=== PATIENT | female | born 1995 | race Caucasian/White ===

== ENCOUNTER 2017-08-16 16:05 | Emergency (ER) | payer OTHER ==
[2017-08-16 16:49] VITALS: BP 120/72
--- NOTE | 2017-08-16 17:02 | UC ---
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 - History Of Current Complaint Chief Complaint: UCUpperExtremity Stated Complaint: RT HAND INJ Time Seen by Provider: 08/16/17 16:37 Hx Obtained From: Patient Hx Last Menstrual Period: 07/29/17 ?: No Mechanism Of Injury: no orginal injury Onset/Duration: Gradual Onset, Lasting Weeks - 52, Still Present Severity Initially: Moderate Severity Currently: Moderate Character Of Pain: Aching, Throbbing, Stiffness Aggravating Factor(s): Movement Alleviating Factor(s): Nothing Associated Signs And Symptoms: Positive: Numbness/Tingling Related History: Dominant Hand Right - Allergies/Home Medications Allergies/Adverse Reactions: Allergies Allergy/AdvReac Type Severity Reaction Status Date / Time No Known Allergies Allergy Verified 08/16/17 16:31 Home Medications: Home Medications Biotin [Biotin Gummies] 2,000 mcg PO 08/16/17 [History] Escitalopram Oxalate [Lexapro 20 mg] 20 mg PO DAILY 08/16/17 [History Confirmed 08/16/17] Famotidine TAB* [Pepcid 20 MG TAB*] 20 mg PO BID 08/16/17 [History Confirmed 11/28] Ibuprofen TAB* [Advil TAB*] 600 mg PO Q6H PRN 08/16/17 [History Confirmed ] Oral Contraceptive 1 tab PO DAILY 08/16/17 [History] PMH/Surg Hx/FS Hx/Imm Hx Previously Healthy: No GI/ History: Gastroesophageal Reflux Psychological History: Other Other Psychological History: eating disorder - Surgical History Surgical History: None - Family History Known Family History: Positive: None - Social History Occupation: Employed Full-time Lives: With Family Alcohol Use: Occasionally Substance Use Type: None Smoking Status (MU): Former Smoker Have You Smoked in the Last Year: Yes When Did the Patient Quit Smoking/Using Tobacco: 06/2017 Review of Systems Constitutional: Negative Skin: Negative Eyes: Negative ENT: Negative Respiratory: Negative Cardiovascular: Negative Gastrointestinal: Negative Genitourinary: Negative Motor: Negative Neurovascular: Negative Musculoskeletal: Arthralgia - right hand pain Neurological: Negative Psychological: Negative Is Patient Immunocompromised?: No All Other Systems Reviewed And Are Negative: Yes Physical Exam Triage Information Reviewed: Yes Appearance: Well-Appearing, No Pain Distress, Well-Nourished Vital Signs: Initial Vital Signs Temp 98.3 F 08/16/17 16:33 Pulse 73 08/16/17 16:33 Resp 16 08/16/17 16:33 BP 120/72 08/16/17 16:33 Pulse Ox 100 08/16/17 16:33 Vital Signs Reviewed: Yes Eye Exam: Normal Eyes: Positive: Conjunctiva Clear ENT Exam: Normal ENT: Positive: Normal ENT inspection, Hearing grossly normal, Pharynx normal, TMs normal. Negative: Nasal congestion, Tonsillar swelling, Tonsillar exudate, Trismus, Muffled voice, Hoarse voice, Dental tenderness, Sinus tenderness Dental Exam: Normal Neck exam: Normal Neck: Positive: Supple, Nontender, No Lymphadenopathy Respiratory Exam: Normal Respiratory: Positive: Chest non-tender, Lungs clear, Normal breath sounds, No respiratory distress, No accessory muscle use Cardiovascular Exam: Normal Cardiovascular: Positive: RRR, No Murmur, Pulses Normal, Brisk Capillary Refill Musculoskeletal Exam: Normal Musculoskeletal: Positive: Strength Intact, ROM Intact, No Edema Neurological Exam: Normal Neurological: Positive: Alert, Muscle Tone Normal Psychological Exam: Normal Psychological: Positive: Normal Response To Family, Age Appropriate Behavior Skin Exam: Normal Skin: Positive: rashes Diagnostics - Radiology No standard instances Xray Interpretation: No Acute Changes Radiology Interpretation Completed By: ED Physician, Radiologist Hand/Wrist Course/Dx - Course Course Of Treatment: medrol dose pack, john wrap patient refused work note - Differential Dx/Diagnosis Provider Diagnoses: right hand tendonitis, self reported eating disorder Discharge - Discharge Plan Condition: Stable Disposition: HOME Prescriptions: Methylprednisolone [Medrol Dosepak 4 MG*] 4 mg PO .SEE LISA INSTRUCTION #1 lisa Patient Education Materials: Tendinitis (ED) Referrals: [facility] [Outside] - As Soon As Possible Garrett Adan MD [Medical Doctor] - As Soon As Possible Manolo Munson PA [Primary Care Provider] -
--- NOTE | 2017-08-16 17:51 | RAD ---
INDICATION: Chronic hand pain. Fall 2 weeks ago. Attention metacarpal phalangeal joints and fifth digit. COMPARISON: December 28, 2005 radiographs of the fifth finger. TECHNIQUE: AP, lateral, and oblique views RIGHT hand. REPORT: Normal articular alignment. Negative for fracture. Unremarkable soft tissue contours. IMPRESSION: No traumatic injury evident. No significant arthropathic change evident. Negative exam.
== END 2017-08-16 18:13 | disposition home or self-care (01) ==
LOC: UCCORT 16:05
DX: M77.9 Enthesopathy, unspecified (principal); F50.9 Eating disorder, unspecified; K21.9 Gastro-esophageal reflux disease without esophagitis; Z87.891 Personal history of nicotine dependence; Z79.899 Other long term (current) drug therapy; W19.XXXA Unspecified fall, initial encounter; Y92.9 Unspecified place or not applicable
CPT/HCPCS: 99212; G0463

== ENCOUNTER 2019-09-19 07:20 | Emergency (ER) | payer OTHER ==
[2019-09-19 07:43] VITALS: BP 105/66
--- NOTE | 2019-09-19 08:04 | UC ---
Throat Pain/Nasal Mainor HPI - HPI Summary HPI Summary: 23 yo with sore throat for a week. She is finding it hard to swallow and only managing soft foods. No fever, headache or associated cough. - History of Current Complaint Chief Complaint: UCRespiratory Stated Complaint: BUMPS IN THROAT Time Seen by Provider: 09/19/19 07:54 Hx Obtained From: Patient Hx Last Menstrual Period: 09/01/19 Onset/Duration: Gradual Onset, Lasting Days Severity: Moderate Pain Intensity: 6 Cough: None Associated Signs & Symptoms: Positive: Dysphagia - Epiglottits Risk Factors Epiglottis Risk Factors: Negative - Allergies/Home Medications Allergies/Adverse Reactions: Allergies Allergy/AdvReac Type Severity Reaction Status Date / Time omeprazole Allergy Hives Verified 09/19/19 07:44 seasonal Allergy Congestion Uncoded 09/19/19 07:44 Home Medications: Home Medications Biotin 1 tab PO QPM PRN 09/19/19 [History Confirmed 09/19/19] Dextromethorphn/Acetaminoph/Cp [Vicks Nyquil Cold & Flu N] 1 liq PO QPM [History Confirmed 09/19/19] Thera-Flu 1 powder PO DAILY 09/19/19 [History Confirmed 09/19/19] PMH/Surg Hx/FS Hx/Imm Hx Previously Healthy: Yes GI/ History: Gastroesophageal Reflux - Surgical History Surgical History: None - Family History Known Family History: Positive: Hypertension - father's side - Social History Occupation: Employed Full-time Lives: With Family Alcohol Use: Occasionally Substance Use Type: None Smoking Status (MU): Never Smoked Tobacco Have You Smoked in the Last Year: No When Did the Patient Quit Smoking/Using Tobacco: 06/2017 Review of Systems All Other Systems Reviewed And Are Negative: Yes Constitutional: Positive: Negative Skin: Positive: Negative Eyes: Positive: Negative ENT: Positive: Sore Throat. Negative: Ear Ache, Nasal Discharge, Sinus Congestion Respiratory: Positive: Negative. Negative: Cough Cardiovascular: Positive: Negative Gastrointestinal: Positive: Other - uses famotidine daily, controls reflux well Genitourinary: Positive: Negative Motor: Positive: Negative Neurovascular: Positive: Negative Musculoskeletal: Positive: Negative Neurological: Positive: Negative Psychological: Positive: Negative Is Patient Immunocompromised?: No Physical Exam Triage Information Reviewed: Yes Appearance: Well-Appearing, Pain Distress - mild Vital Signs: Initial Vital Signs Temp 98 F 09/19/19 07:37 Pulse 87 09/19/19 07:37 Resp 16 09/19/19 07:37 BP 105/66 09/19/19 07:37 Pulse Ox 100 09/19/19 07:37 Eye Exam: Normal Eyes: Positive: Conjunctiva Clear ENT: Positive: Pharyngeal erythema, TMs normal. Negative: Tonsillar swelling, Tonsillar exudate Neck: Positive: Supple, Nontender, No Lymphadenopathy Respiratory: Positive: Lungs clear, Normal breath sounds Cardiovascular: Positive: RRR, No Murmur Diagnostics - Laboratory Lab Results: rapid strep negative. Throat Pain/Nasal Course/Dx - Course Course Of Treatment: symptomatic treatment of viral pharyngitis. - Differential Dx/Diagnosis Differential Diagnosis/HQI/PQRI: Laryngitis, Pharyngitis, Tonsillitis, URI Provider Diagnosis: Pharyngitis Discharge ED - Sign-Out/Discharge Documenting (check all that apply): Patient Departure All imaging exams completed and their final reports reviewed: No Studies - Discharge Plan Condition: Stable Disposition: HOME Patient Education Materials: Pharyngitis (ED) Referrals: No Primary Care Phys,NOPCP [Primary Care Provider] - Additional Instructions: Use ibuprofen 600mg up to 4 times per day for treatment of sore throat. Sometimes us of pseudoephedrine 30mg will decrease the drainage causing the inflammation and soreness. Follow up if you develop fever or cough. - Billing Disposition and Condition Condition: STABLE Disposition: Home
== END 2019-09-19 08:15 | disposition home or self-care (01) ==
LOC: UCCORT 07:20
DX: J02.9 Acute pharyngitis, unspecified (principal); K21.9 Gastro-esophageal reflux disease without esophagitis; Z91.09 Other allergy status, other than to drugs and biological substances; Z88.8 Allergy status to other drugs, medicaments and biological substances; Z79.899 Other long term (current) drug therapy
CPT/HCPCS: 87651; 99211; G0463